=== PATIENT | female | born 1950 | race Two or more races ===

== ENCOUNTER 2024-01-28 13:47 | Emergency (ER) | payer OTHER ==
[2024-01-28 14:52] VITALS: RESP 18; BMI 33.5
[2024-01-28 15:24] LABS: BASO % 1.1 % (0-2.0); EOS % 0.4 % (0-4.5); HEMATOCRIT 33.6 % (32.4-45.2); HEMOGLOBIN 11.2 GM/dL (10.7-15.3); LYMPH % 23.1 % (8-40); MCH 34.5 pg (25.7-33.7); MCHC 33.4 g/dl (32.0-36.0); MEAN CELL VOLUME 103.1 fl (80-96); MEAN PLT VOLUME 7.5 fl (7.5-11.1); MONO % 5.7 % (3.8-10.2); NEUT % 69.7 % (42.8-82.8); PLATELET COUNT 236 10^3/uL (134-434); RBC 3.26 M/mm3 (3.60-5.2); RDW 15.2 % (11.6-15.6)
[2024-01-28 15:44] LABS: ACTIVATED PTT 26.8 SECONDS (25.2-36.5); INR 0.96 (0.83-1.09); PROTHROMBIN TIME (PATIENT) 11.1 SEC (9.7-13.0)
[2024-01-28 15:54] LABS: POTASSIUM 3.4 mmol/L (3.5-5.1)
[2024-01-28 15:57] LABS: ALBUMIN 3.3 g/dl (3.4-5.0); BLOOD UREA NITROGEN 7.8 mg/dL (7-18); CALCIUM 9.1 mg/dL (8.5-10.1); MAGNESIUM 1.9 mg/dL (1.8-2.4)
[2024-01-28 16:00] LABS: PHOSPHOROUS 2.9 mg/dL (2.5-4.9)
[2024-01-28 16:02] LABS: BILIRUBIN,TOTAL 0.5 mg/dL (0.2-1); TOT PROT 6.8 g/dl (6.4-8.2)
[2024-01-28 17:58] VITALS: BP 158/59; PULSE 68; TEMP 98.9
[2024-01-28] MEDS ORDERED: POTASSIUM CHLORIDE TABS 20 MEQ TABLET.ER (FP) PO ONE (18:06)
[2024-01-28] MEDS ORDERED: chlordiazePOXIDE HCL 25 MG CAPSULE ONE (18:06)
[2024-01-28] MEDS ORDERED: MAG HYDROX/AL HYDROX/SIMETH 30 ML UNIT-DOSE CUP ONE (18:07)
[2024-01-28] MEDS ORDERED: IBUPROFEN 400 MG TABLET (FP) PO ONE (18:07)
[2024-01-28] MEDS ORDERED: PANTOPRAZOLE SODIUM 40 MG/100 ML BAG IVPB ONE (18:07)
[2024-01-28] MEDS: POTASSIUM CHLORIDE TABS 20 MEQ TABLET.ER (FP) PO ONE (18:16)
[2024-01-28] MEDS: IBUPROFEN 400 MG TABLET (FP) PO ONE (18:16)
[2024-01-28] MEDS: chlordiazePOXIDE HCL 25 MG CAPSULE PO ONE (18:16)
[2024-01-28] MEDS: PANTOPRAZOLE SODIUM 40 MG VIAL IVPUSH ONE (18:17)
[2024-01-28] MEDS: MAG HYDROX/AL HYDROX/SIMETH 30 ML UNIT-DOSE CUP PO ONE (18:17)
[2024-01-28] MEDS: SUCRALFATE 1 GM/10 ML UNIT DOSE CUPS PO ONE (18:18)
[2024-01-28] MEDS: levETIRAcetam 500 MG TABLET (FP) PO ONE (19:46)
[2024-01-29] MEDS ORDERED: levETIRAcetam 500 MG TABLET (FP) PO ONE (15:05)
== END 2024-01-28 20:05 | disposition home or self-care (01) ==
LOC: JER 13:47
PROC: 3E033NZ Introduction of Analgesics, Hypnotics, Sedatives into Peripheral Vein, Percutaneous Approach (ICD-10-PCS; principal; 2024-01-28)
DX: F10.20 Alcohol dependence, uncomplicated (principal); Y90.9 Presence of alcohol in blood, level not specified; Z20.822 Contact with and (suspected) exposure to COVID-19
CPT/HCPCS: 0241U-QW; 36415; 70450-TC; 70486-TC; 71045-TC-FY; 72125-TC; 72128-TC; 72170-TC-FY; 73030-TC-LT-FY; 80053; 83735; 84100; 84484; 85025; 85610; 85730; 93005; 93010; 99285-25

== ENCOUNTER 2024-01-28 20:27 | Inpatient (IN) | payer OTHER ==
[2024-01-28 12:58] VITALS: BMI 34.0
[2024-01-29] MEDS ORDERED: LOPERAMIDE HCL 2 MG CAPSULE PO PRN (01:25)
[2024-01-29] MEDS ORDERED: NALOXONE HCL 0.4 MG/ML VIAL IM PRN (01:25)
[2024-01-29] MEDS ORDERED: BENZONATATE 200 MG CAPSULE PO PRN (01:25)
[2024-01-29] MEDS ORDERED: POLYETHYLENE GLYCOL (HEALTHYLAX) 3350 17 GM PACKET PO PRN (01:25)
[2024-01-29] MEDS ORDERED: BENZOCAINE/MENTHOL (CHLORASEPTIC ) LOZENGE MM PRN (01:25)
[2024-01-29] MEDS ORDERED: NICOTINE POLACRILEX 2 MG GUM BUC PRN (01:25)
[2024-01-29] MEDS ORDERED: NALOXONE HCL (KLOXXADO) 8 MG SPRAY NS PRN (01:25)
[2024-01-29] MEDS ORDERED: guaiFENesin 600 MG TABLET.ER (FP) PO PRN (01:25)
[2024-01-29] MEDS ORDERED: MAGNESIUM HYDROX 2400MG/30ML ORAL SUSPENSION 30 ML CUP PO PRN (01:25)
[2024-01-29] MEDS: LORazepam 2 MG TABLET PO SCH (05:34)
[2024-01-29] MEDS: NICOTINE 21 MG/24 HOURS TOPICAL PATCH TD SCH (10:05)
[2024-01-29] MEDS: PRENATAL VITAMINS W/ FOLIC ACID TABLET (FP) PO SCH (10:07)
[2024-01-29] MEDS: MAG HYDROX/AL HYDROX/SIMETH 30 ML UNIT-DOSE CUP PO PRN (10:08)
[2024-01-29] MEDS: LORazepam 1 MG TABLET PO PRN (15:48)
[2024-01-29] MEDS: amLODIPine BESYLATE 5 MG TABLET (FP) PO SCH (17:41)
[2024-01-29] MEDS: levETIRAcetam 250 MG TABLET PO SCH (17:41)
[2024-01-29] MEDS: PANTOPRAZOLE 40 MG TABLET PO ONE (19:03)
[2024-01-29] MEDS: BUDESONIDE/FORMETEROL FUMARATE 160/4.5 mcg INHALER IH SCH (22:21)
[2024-01-29] MEDS: THIAMINE HCL 100 MG TABLET (FP) PO SCH (22:21)
[2024-01-29] MEDS: MELATONIN 5 MG TABLETS PO SCH (22:21)
[2024-01-30] MEDS: LORazepam 1 MG TABLET PO SCH (05:25)
[2024-01-30] MEDS ORDERED: PATIENT'S OWN MEDICATION (NON-FORMULARY) (Atogepant [Qulipta] 60 MG Tablet) PO SCH (10:00)
[2024-01-30] MEDS: CHLORTHALIDONE 25 MG TABLET PO SCH (10:19)
[2024-01-30] MEDS: PANTOPRAZOLE 40 MG TABLET PO SCH (10:19)
[2024-01-30 14:09] LABS: HEMATOCRIT 33.9 % (32.4-45.2); HEMOGLOBIN 11.1 GM/dL (10.7-15.3); MCH 34.4 pg (25.7-33.7); MCHC 32.9 g/dl (32.0-36.0); MEAN CELL VOLUME 104.7 fl (80-96); PLATELET COUNT 207 10^3/uL (134-434); RBC 3.24 M/mm3 (3.60-5.2); RDW 15.7 % (11.6-15.6)
[2024-01-30 14:15] LABS: POTASSIUM 3.8 mmol/L (3.5-5.1)
[2024-01-30 14:18] LABS: ALBUMIN 2.8 g/dl (3.4-5.0); CALCIUM 8.8 mg/dL (8.5-10.1)
[2024-01-30 14:19] LABS: BLOOD UREA NITROGEN 9.4 mg/dL (7-18)
[2024-01-30 14:21] LABS: CREATININE 0.8 mg/dL (0.55-1.3)
[2024-01-30 14:22] LABS: BILIRUBIN,TOTAL 0.5 mg/dL (0.2-1)
[2024-01-30] MEDS: BISMUTH SUBSALICYLATE 524 MG/30 ML PO PRN (17:15)
[2024-01-30] MEDS: amLODIPine BESYLATE 5 MG TABLET (FP) PO ONE (17:16)
[2024-01-31] MEDS: LORazepam 0.5 MG TABLET PO SCH (05:25)
[2024-01-31] MEDS: ACETAMINOPHEN 325 MG TABLET (FP) PO PRN (05:26)
[2024-01-31] MEDS: ONDANSETRON *ODT* 4 MG TABLET SL PRN (07:59)
[2024-01-31] MEDS: LORazepam 0.5 MG TABLET PO PRN (07:59)
[2024-01-31] MEDS: IBUPROFEN 400 MG TABLET (FP) PO PRN (08:00)
[2024-01-31] MEDS: IBUPROFEN 600 MG TABLET (FP) PO PRN (18:49)
[2024-02-01] MEDS: LORazepam 0.5 MG TABLET PO ONE ×2 (05:53→12:28)
[2024-02-01] MEDS: PATIENT'S OWN MEDICATION (NON-FORMULARY) (Atogepant [Qulipta] 60 MG Tablet) PO SCH (15:34)
[2024-02-02] MEDS: LORazepam 0.5 MG TABLET PO ONE (05:40)
[2024-02-02 12:40] VITALS: BP 119/61; PULSE 82; RESP 18; TEMP 97.8
== END 2024-02-02 14:24 | disposition home or self-care (01) | DRG 897 ==
LOC: EDSEX → YASAS 20:27 → Y3N 01-29 01:31
PROVIDERS: ADMIT Allergy & Immunology; ATTEND Allergy & Immunology
PROC: HZ2ZZZZ Detoxification Services for Substance Abuse Treatment (ICD-10-PCS; principal; 2024-01-29)
DX: F10.230 Alcohol dependence with withdrawal, uncomplicated (principal); I10 Essential (primary) hypertension; J45.909 Unspecified asthma, uncomplicated; R73.03 Prediabetes; Z86.69 Personal history of other diseases of the nervous system and sense organs; Z86.79 Personal history of other diseases of the circulatory system; Z87.19 Personal history of other diseases of the digestive system
CPT/HCPCS: 36415; 80053; 80307; 85027; 86780; 87811; 93005; 93010; Q0162